=== PATIENT | male | born 1955 | race Two or more races ===

== ENCOUNTER 2018-04-09 13:50 | Emergency (ER) | payer MEDICARE ==
[2018-04-09 14:37] LABS: ADD MAN DIFF? NO
[2018-04-09 14:42] LABS: BASOPHILS % 0.4 % (0.0-2.0); EOSINOPHILS # 0.1 10^3/ul (0.0-0.5); EOSINOPHILS % 1.5 % (0.0-7.0); HEMATOCRIT 43.6 % (42.0-52.0); LYMPHOCYTES # 1.6 10^3/ul (0.8-2.9); MEAN CORPUSCULAR HEMOGLOBIN 32.5 pg (29.0-33.0); MEAN CORPUSCULAR HGB CONC 34.4 g/dl (32.0-37.0); MEAN CORPUSCULAR VOLUME 94.4 fl (82.0-101.0); MONOCYTE # 1.1 10^3/ul (0.3-0.9); MONOCYTES % 13.3 % (0.0-11.0); NEUTROPHIL # 5.6 10^3/ul (1.6-7.5); NEUTROPHILS % 65.6 % (39.0-77.0); PLATELET COUNT 220 10^3/UL (140-415); RED BLOOD COUNT 4.62 10^6/ul (4.70-6.10); RED CELL DISTRIBUTION WIDTH 11.5 % (11.5-14.5)
[2018-04-09 14:42] LABS: WHITE BLOOD COUNT 8.6 10^3/ul (4.8-10.8)
[2018-04-09 15:00] LABS: ALANINE AMINOTRANSFERASE 25 IU/L (13-69); ALBUMIN 4.1 g/dl (3.3-4.9); ALBUMIN/GLOBULIN RATIO 1.36; ALKALINE PHOSPHATASE 68 IU/L (42-121); ANION GAP 10 (5-13); ASPARTATE AMINO TRANSFERASE 29 IU/L (15-46); BLOOD UREA NITROGEN 17 mg/dl (7-20); CALCIUM 9.2 mg/dl (8.4-10.2); CARBON DIOXIDE 22 mmol/L (21-31); CHLORIDE 109 mmol/L (97-110); Estimated GFR > 60 mL/min (>60); GLUCOSE 116 mg/dl (70-220); POTASSIUM 3.5 mmol/L (3.5-5.1); SODIUM 141 mmol/L (135-144); TOTAL PROTEIN 7.1 g/dl (6.1-8.1)
[2018-04-09 15:12] LABS: ACETAMINOPHEN < 10.0 ug/ml (10.0-30.0); ETHANOL < 10.0 mg/dl; SALICYLATE < 1.0 mg/dl (5.0-30.0)
[2018-04-09] MEDS: HALOPERIDOL 5 MG INJ IM (17:17)
[2018-04-09] MEDS: LORAZEPAM 2 MG INJ IM (17:17)
[2018-04-09] MEDS: DIPHENHYDRAMINE 50 MG INJ IM (17:17)
[2018-04-09] MEDS: OLANZAPINE 10 MG VIAL IM (17:59)
[2018-04-10] MEDS: LORAZEPAM 2 MG INJ IM ×2 (02:58→08:30)
[2018-04-10] MEDS: HALOPERIDOL 5 MG INJ IM (02:58)
== END 2018-04-10 11:12 ==
LOC: E/R 04-10 11:12
DX: F29 Unspecified psychosis not due to a substance or known physiological condition (principal); R40.2142 Coma scale, eyes open, spontaneous, at arrival to emergency department; R40.2252 Coma scale, best verbal response, oriented, at arrival to emergency department; R40.2362 Coma scale, best motor response, obeys commands, at arrival to emergency department
CPT/HCPCS: 80053; 80307; 85025; 96372; 99285-25